=== PATIENT | male | born 1945 | race Caucasian/White ===

== ENCOUNTER 2016-07-06 19:21 | Inpatient (IN) | payer BC, OTHER ==
[2016-07-06 20:43] VITALS: BMI 29.1
[2016-07-06] MEDS ORDERED: Docusate-Senna 50 mg-8.6 mg Tab PO STA (21:50)
[2016-07-06] MEDS ORDERED: Docusate-Senna 50 mg-8.6 mg Tab PO SCH ×2 (22:00→23:20)
--- NOTE | 2016-07-06 23:00 | CP.PCM.HP ---
History of Present Illness - History of Present Illness History of Present Illness: Attending Dr Bangura PCP: Dr Chopra Chief Complaint: s/p Back surgery HPI: 71 years old male with hx of Hepatitis C; Liver Cirrhosis with thrombocytopenia, lumbar degenerative disc disease, transferred from [facility] [place] in [place], [facility] and [facility]. He was admitted to the [facility] on 07/02/16 for an elective posterior spinal fusion of T10 L2 S1 on the same day. The Surgeon was Dr Abilio Dewey. He apparently tolerated the surgery well and still have a Hemovac connected. Still with post surgical pains. PMH: Lumbar degenerative disc disease; HTN; Mild gastritis/ Duodenitis; Esophageal Varices s/p ligation; Hepatitis C treated 2015; Liver Cirrhosis; Hypothyroidism, Chronic mild edema to both lower extemities; SVT; PSH: Spinal surgery 2007; Spinal fusion T10 L2 L5 S1 SH: , live with spouse, light Cigarette use, no alcohol, no illegal drug use FH: No known faily hx Allergies: Celebrex causes hives Present on Admission - Present on Admission Any Indicators Present on Admission: No History of DVT/PE: No History of Uncontrolled Diabetes: No Urinary Catheter: No Decubitus Ulcer Present: No Review of Systems - Constitutional Constitutional: absent: Anorexia, Chills, Fatigue, Fever, Headache - EENT Eyes: Requires Corrective Lenses. absent: Diplopia, Floaters, Photophobia, Sees Flashes Ears: absent: Decreased Hearing, Ear Discharge, Ear Pain, Tinnitus Nose/Mouth/Throat: absent: Epistaxis, Nasal Congestion, Nasal Discharge, Sinus Pain, Sinus Pressure, Sore Throat - Cardiovascular Cardiovascular: Edema. absent: Chest Pain, Dyspnea, Orthopnea - Respiratory Respiratory: absent: Cough, Dyspnea, Wheezing - Gastrointestinal Gastrointestinal: Constipation. absent: Abdominal Pain, Diarrhea, Nausea, Vomiting - Genitourinary Genitourinary: absent: Dysuria, Flank Pain, Hematuria, Urinary Frequency - Musculoskeletal Musculoskeletal: Muscle Weakness Additional comments: Back pain, radiating down both lower extremities. Edema to both lower extremities. - Integumentary Integumentary: Pruritus, Rash - Neurological Neurological: absent: Confusion, Focal Weakness, Headaches, Memory Loss, Vertigo - Psychiatric Psychiatric: absent: Anxiety, Depression, Panic Attacks - Endocrine Endocrine: absent: Palpitations, Polydipsia, Polyphagia, Polyuria - Hematologic/Lymphatic Hematologic: absent: Easy Bleeding, Easy Bruising Past Patient History - Past Medical History & Family History Past Medical History?: Yes - Past Social History Smoking Status: Current Some Days Smoker Chewing Tobacco Use: No Cigar Use: No Alcohol: None Home Situation {Lives}: With Family - CARDIAC Hx Hypertension: Yes Other/Comment: SVT - PULMONARY Hx Respiratory Disorders: No - NEUROLOGICAL Hx Neurological Disorder: No - HEENT Hx HEENT Problems: No - RENAL Hx Chronic Kidney Disease: No - ENDOCRINE/METABOLIC Hx Hypothyroidism: Yes - HEMATOLOGICAL/ONCOLOGICAL Hx Blood Transfusions: Yes Hx Cirrhosis: Yes Hx Hepatitis C: Yes - INTEGUMENTARY Hx Dermatological Problems: No - MUSCULOSKELETAL/RHEUMATOLOGICAL Hx Falls: No Other/Comment: Degenerative Disc Disease - GASTROINTESTINAL Hx Esophageal Varices: Yes Hx Gastritis: Yes - GENITOURINARY/GYNECOLOGICAL Hx Genitourinary Disorders: No - PSYCHIATRIC Hx Psychophysiologic Disorder: No - SURGICAL HISTORY Other/Comment: Back Fusion - ANESTHESIA Hx Anesthesia: Yes Hx Anesthesia Reactions: No Meds Allergies/Adverse Reactions: Allergies Allergy/AdvReac Type Severity Reaction Status Date / Time celecoxib [From Celebrex] Allergy Unknown RASH Verified 07/06/16 20:43 Physical Exam - Constitutional Appears: No Acute Distress - Head Exam Head Exam: ATRAUMATIC, NORMAL INSPECTION, NORMOCEPHALIC - Eye Exam Eye Exam: EOMI, Normal appearance Pupil Exam: NORMAL ACCOMODATION, PERRL - ENT Exam ENT Exam: Mucous Membranes Moist, Normal Exam, Normal External Ear Exam, Normal Oropharynx - Neck Exam Neck exam: Positive for: Full Rom, Normal Inspection. Negative for: Lymphadenopathy, Tenderness - Respiratory Exam Respiratory Exam: Clear to Auscultation Bilateral. absent: Rales, Rhonchi, Wheezes - Cardiovascular Exam Cardiovascular Exam: REGULAR RHYTHM, RRR, +S1, +S2. absent: JVD - GI/Abdominal Exam GI & Abdominal Exam: Normal Bowel Sounds, Soft. absent: Mass, Organomegaly, Tenderness - Rectal Exam Rectal Exam: Deferred - Extremities Exam Additional comments: 2+ edema to the left lower extremity with 1+ edema to the right lower extremity. - Back Exam Additional comments: Post surgical back pain. Surgical dressing clean and dry,along the thoraco- lumbar spine with Hemo vac in place. - Neurological Exam Neurological exam: Alert, CN II-XII Intact, Oriented x3, Reflexes Normal - Psychiatric Exam Psychiatric exam: Normal Affect, Normal Mood - Skin Skin Exam: Dry, Intact, Pallor, Warm Results - Labs Labs: 07/04/16 Hb 7.7g/dlHt 22.5 Platelets 46 MCV 95 Sodium: 137 Potassium: 4.7 BUN: 33 Creatinine: 1.04 Assessment & Plan - Assessment and Plan (Free Text) Assessment: #. Lumbar degenerative Disc Disease s/p Spinal fusion T10 L2 S1 #. Liver Cirrhosis #. Thrombocytopenia #. Anemia #. Hypothyroidism #. HTN #. hepatitis C treated Plan: 71 years old male with hx of Hepatitis C; Liver Cirrhosis with thrombocytopenia , lumbar degenerative disc disease, transferred from [facility] [place] in [place], [facility] and [facility]. He was admitted to the [facility] on 07/02/16 for an elective posterior spinal fusion of T10 L2 S1 on the same day. The Surgeon was Dr Abilio Dewey. He apparently tolerated the surgery well and still have a Hemovac connected. Still with post surgical pains. #. Lumbar degenerative Disc Disease s/p Spinal fusion T10 L2 S1 -Pain management with Codine - Dressing on surgical site to be removed on POD#5 on 07/07/16, Then leave incision open to air as per medical records - PT/OT #. Liver Cirrhosis - Xifaxan 550mg po BID - Aldactone #. Thrombocytopenia secondary to liver cirrhosis - consult Hematology Derek Hayes - Follow platelets #. Anemia of chronic disease - Hematology on consult - follow Hb #. Edema to both lower extremities probably secondary to Hyplalbuminemia - Hold lasix #. Hypothyroidism - Levothyroxin 25mcg po daily #. HTN - Nadolol #. Hepatitis C treated #. DVT Prophylaxis with SCD #. code Status: full - Date & Time Date: 07/06/16 Time: 23:00
[2016-07-06] MEDS ORDERED: AL HYDROX PO PRN (23:08)
[2016-07-06] MEDS ORDERED: SIMETH PO PRN (23:08)
[2016-07-06] MEDS ORDERED: MAG HYDROX PO PRN (23:08)
[2016-07-06] MEDS ORDERED: Alum-Mag Hydrox-Simethicone Susp (30 mL) PO PRN ×2 (23:23→23:25)
[2016-07-07 00:42] VITALS: RESP 20
[2016-07-07] MEDS: Levothyroxine 25 MCG TAB PO SCH (06:35)
[2016-07-07 07:34] LABS: BASO % 0.2 % (0.0-2.0); EOS # 0.1 K/uL (0.0-0.7); EOS % 1.5 % (0.0-4.0); HEMATOCRIT 23.7 % (35.0-51.0); LYMPH # 0.5 K/uL (1.0-4.3); LYMPH % 10.2 % (20.0-40.0); MEAN CELL VOLUME 94.1 fl (80.0-94.0); MEAN CORPUSCULAR HEMOGLOBIN 32.8 pg (27.0-31.0); MEAN CORPUSCULAR HGB CONC 34.9 g/dL (33.0-37.0); MEAN PLATELET VOLUME 11.2 fl (7.2-11.7); MONO # 0.8 K/uL (0.0-0.8); MONO % 15.6 % (0.0-10.0); NEUT # 3.6 K/uL (1.8-7.0); NEUT % 72.5 % (50.0-75.0); NRBC % 0.1 % (0.0-0.0); RED CELL DISTRIBUTION WIDTH 15.4 % (11.5-14.5)
[2016-07-07 07:50] LABS: ALB/GLOB RATIO 0.8 (1.0-2.1); ALKALINE PHOSPHATASE 53 U/L (38-126); ALT/SGPT 34 U/L (21-72); AST/SGOT 42 U/L (17-59); BILIRUBIN,TOTAL 2.7 mg/dl (0.2-1.3); BLOOD UREA NITROGEN 20 mg/dl (9-20); CALCIUM 8.1 mg/dL (8.4-10.2); CARBON DIOXIDE 25 mmol/L (22-30); CHLORIDE 100 mmol/L (98-107); GFR AFRICAN-AMERICAN > 60; GLUCOSE,RANDOM 121 mg/dL (75-110); POTASSIUM 5.1 MMOL/L (3.6-5.0); SODIUM 131 mmol/l (132-148); TOTAL PROTEIN 5.2 G/DL (6.3-8.2)
[2016-07-07] MEDS ORDERED: Sod Polystyrene Sulf 15 gm/60 ml Oral Susp PO ONE (14:15)
--- NOTE | 2016-07-07 14:30 | HP ---
HISTORY OF PRESENT ILLNESS: This is a 71-year-old [place]an male with history of multiple medical pro blems, including liver cirrhosis secondary to hepatitis C, recently underwent spine surgery. The pat carli was admitted to transitional care unit after surgery for rehabilitation and deconditioning. The patient complains of back pain and constipation. No shortness of breath. REVIEW OF SYSTEMS: Other review of systems is negative. ALLERGIES: No known allergy. HOME MEDICATIONS: Nadolol 20 mg daily, Dilaudid 2 mg every 4 hours p.r.n., cabergoline 0.5 mg daily, Lasix 40 mg daily, lactulose 10 g q.i.d. p.r.n., levothyroxine 25 mcg daily, Xifaxan 550 mg daily, s pironolactone 25 mg daily. PAST MEDICAL HISTORY: 1. Hepatitis C, status post treatment with current undetected virus. 2. Liver cirrhosis. 3. Degenerative spine disease. 4. Hypothyroidism. SOCIAL HISTORY: No history of smoking, ETOH or substance abuse. FAMILY HISTORY: Noncontributory. PHYSICAL EXAMINATION: GENERAL: The patient is in bed, comfortable, not in any cardiopulmonary distress. VITAL SIGNS: Blood pressure 95/45, temperature 98.2, respiratory rate 20, and pulse 70. HEENT: Pupils equal, reactive to light. Normal-appearing mucosa of the conjunctivae, oropharyngeal and nasal membrane mucosa. NECK: Supple, no JVD, no carotid bruit, no lymph node, no thyromegaly. CHEST AND LUNGS: Bilateral symmetrical expansion, good air exchange, no rales, no rhonchi. CARDIOVASCULAR: PMI not localized. S1, S2. No additional sounds. ABDOMEN: Normoactive bowel sounds, no tenderness, no organomegaly, no masses. EXTREMITIES: No cyanosis, no clubbing, no edema. CENTRAL NERVOUS SYSTEM: Alert, awake, oriented x 3. No neurological deficits could be appreciated. ASSESSMENT: 1. Postoperative status post spine surgery for degenerative spine disease. 2. Liver cirrhosis secondary to hepatitis C. 3. Thrombocytopenia. 4. Hyperkalemia. PLAN: We will hold spironolactone and give the patient Kayexalate. Pain medications as needed and p hysical therapy. Sameh S Willem MD cc: [id number] TT: 07/07/2016 14:29:11 tn
--- NOTE | 2016-07-07 20:37 | CP.PCM.CON ---
History of Present Illness - History of Present Illness History of Present Illness: patient is a 71 year old male admitted to the transitional care unit for rehab. Patient with lumbar disc disease with low back pain radiating to the legs. Underwent surgery By Dr Dewey on 07/02 posterior spinal fusion T10 L2 L5 S1. Other History significant for Hep C, Supraventricular tachhcardia, eosopgageal varices, hypothroidism HTN Review of Systems - Constitutional Constitutional: Weakness - Musculoskeletal Musculoskeletal: Back Pain, Numbness, Tingling Past Patient History - Past Medical History & Family History Past Medical History?: Yes - Past Social History Smoking Status: Current Some Days Smoker Chewing Tobacco Use: No Cigar Use: No Alcohol: None Home Situation {Lives}: With Family - CARDIAC Hx Hypertension: Yes Other/Comment: SVT - PULMONARY Hx Respiratory Disorders: No - NEUROLOGICAL Hx Neurological Disorder: No - HEENT Hx HEENT Problems: No - RENAL Hx Chronic Kidney Disease: No - ENDOCRINE/METABOLIC Hx Hypothyroidism: Yes - HEMATOLOGICAL/ONCOLOGICAL Hx Blood Transfusions: Yes Hx Cirrhosis: Yes Hx Hepatitis C: Yes - INTEGUMENTARY Hx Dermatological Problems: No - MUSCULOSKELETAL/RHEUMATOLOGICAL Hx Falls: No Other/Comment: Degenerative Disc Disease - GASTROINTESTINAL Hx Esophageal Varices: Yes Hx Gastritis: Yes - GENITOURINARY/GYNECOLOGICAL Hx Genitourinary Disorders: No - PSYCHIATRIC Hx Psychophysiologic Disorder: No - SURGICAL HISTORY Other/Comment: Back Fusion - ANESTHESIA Hx Anesthesia: Yes Hx Anesthesia Reactions: No Meds Allergies/Adverse Reactions: Allergies Allergy/AdvReac Type Severity Reaction Status Date / Time celecoxib [From Celebrex] Allergy Unknown RASH Verified 07/06/16 20:43 - Medications Medications: Current Medications Al Hydrox/Mg Hydrox/Simethicone (Maalox Plus 30 Ml) 30 ml PO DAILY PRN PRN Reason: Heartburn Codeine Sulfate (Codeine) 30 mg PO Q6 PRN PRN Reason: Pain, moderate (4-7) Levothyroxine Sodium (Synthroid) 25 mcg PO DAILY@0630 [facility] Last Admin: 07/07/16 06:35 Dose: 25 mcg Nadolol (Corgard) 20 mg PO DAILY [facility] Last Admin: 07/07/16 09:57 Dose: Not Given Rifaximin (Xifaxan) 550 mg PO BID [facility] Last Admin: 07/07/16 17:03 Dose: 550 mg Senna/Docusate Sodium (Senokot S 50 Mg-8.6 Mg) 2 tab PO HS [facility] Spironolactone (Aldactone) 25 mg PO DAILY [facility] Last Admin: 07/07/16 09:16 Dose: 25 mg Physical Exam - Head Exam Head Exam: ATRAUMATIC, NORMAL INSPECTION, NORMOCEPHALIC - Eye Exam Eye Exam: EOMI, Normal appearance - ENT Exam ENT Exam: Mucous Membranes Moist, Normal Exam - Neck Exam Neck exam: Positive for: Normal Inspection - Respiratory Exam Respiratory Exam: NORMAL BREATHING PATTERN - Cardiovascular Exam Cardiovascular Exam: REGULAR RHYTHM - GI/Abdominal Exam GI & Abdominal Exam: Normal Bowel Sounds - Exam External exam: NORMAL EXTERNAL EXAM - Extremities Exam Additional comments: mild bilateral leg edema, right lower extremity slightly weaker than left - Neurological Exam Neurological exam: Alert, CN II-XII Intact, Reflexes Normal - Psychiatric Exam Psychiatric exam: Normal Affect, Normal Mood - Skin Skin Exam: Normal Color Results - Vital Signs Recent Vital Signs: Last Vital Signs Temp 98.2 F 07/07/16 17:05 Pulse 70 07/07/16 17:05 Resp 20 07/07/16 17:05 BP 88/55 L 07/07/16 17:05 Pulse Ox 99 07/07/16 17:05 - Labs Result Diagrams: 07/07/16 06:30 07/07/16 06:30 Labs: Laboratory Results - last 24 hr 07/07/16 06:30 WBC 5.0 RBC 2.52 L Hgb 8.3 L Hct 23.7 L MCV 94.1 H MCH 32.8 H MCHC 34.9 RDW 15.4 H Plt Count 44 L MPV 11.2 Neut % (Auto) 72.5 Lymph % (Auto) 10.2 L [place] % (Auto) 15.6 H Eos % (Auto) 1.5 Baso % (Auto) 0.2 Neut # 3.6 Lymph # 0.5 L [place] # 0.8 Eos # 0.1 Baso # 0.0 PT 13.9 H INR 1.34 H APTT 38.0 H Sodium 131 L Potassium 5.1 H Chloride 100 Carbon Dioxide 25 Anion Gap 11 BUN 20 Creatinine 0.9 Est GFR ( Amer) > 60 Est GFR (Non-Af Amer) > 60 Random Glucose 121 H Calcium 8.1 L Total Bilirubin 2.7 H AST 42 ALT 34 Alkaline Phosphatase 53 Ammonia 12 L Total Protein 5.2 L Albumin 2.3 L Globulin 2.9 Albumin/Globulin Ratio 0.8 L Assessment & Plan (1) Lumbar degenerative disc disease Assessment and Plan: status post posterior Spinal fusion T10 L2 L5 S1 by Dr Elaine admitted to [facility] Spinal precautions/fall precautions Plan for physical, occupational therapy for rom strengthening transfers and gait training. Patient was In dependent prior , so goals for Modified Josephine Other diagnosis Of Hepatits C, Htn eosophageal varices, hypothyroidism to be monitored by PMD and Labs. Status: Acute
[2016-07-07 20:39] LABS: IRON 39 ug/dL (49-181)
[2016-07-07 20:56] LABS: BASO % 0.3 % (0.0-2.0); EOS # 0.1 K/uL (0.0-0.7); EOS % 2.3 % (0.0-4.0); HEMATOCRIT 22.8 % (35.0-51.0); LYMPH # 0.5 K/uL (1.0-4.3); LYMPH % 10.3 % (20.0-40.0); MEAN CELL VOLUME 94.9 fl (80.0-94.0); MEAN CORPUSCULAR HEMOGLOBIN 32.9 pg (27.0-31.0); MEAN CORPUSCULAR HGB CONC 34.6 g/dL (33.0-37.0); MEAN PLATELET VOLUME 10.2 fl (7.2-11.7); MONO # 0.8 K/uL (0.0-0.8); MONO % 15.9 % (0.0-10.0); NEUT # 3.6 K/uL (1.8-7.0); NEUT % 71.2 % (50.0-75.0); RED CELL DISTRIBUTION WIDTH 15.4 % (11.5-14.5)
--- NOTE | 2016-07-07 22:30 | CP.PCM.CON ---
History of Present Illness - History of Present Illness History of Present Illness: 71 year old pleasant [place]an male with a history of hep C cirrhosis, recent completion of hep C treatment, degenerative disc disease s/p spinal fusion admitted to TCU for rehab. The patient is fatigued post surgery and notes to feeling weak. His reports he has been sleeping a lot since his surgery and is concerned he will not be strong enough to participate in rehab. He did require platelet transfusion before and after surgery. He denies abnormal bleeding and bruising. Past medical history: Hep C cirrhosis Past surgical history: Spinal fusion Family history: Denies hematologic and oncologic problems Social history: Denies tobacco, alcohol, and illicit drug use. Allergies: Celecoxib Review of systems: All remaining review of systems including HEENT, cardiovascular, respiratory, gastrointestinal, genitoruinary, musculoskeleletal , dermatologic, neurologic, and psychiatric are negative unless mentioned in the HPI. Past Patient History - Past Medical History & Family History Past Medical History?: Yes - Past Social History Smoking Status: Current Some Days Smoker Chewing Tobacco Use: No Cigar Use: No Alcohol: None Home Situation {Lives}: With Family - CARDIAC Hx Hypertension: Yes Other/Comment: SVT - PULMONARY Hx Respiratory Disorders: No - NEUROLOGICAL Hx Neurological Disorder: No - HEENT Hx HEENT Problems: No - RENAL Hx Chronic Kidney Disease: No - ENDOCRINE/METABOLIC Hx Hypothyroidism: Yes - HEMATOLOGICAL/ONCOLOGICAL Hx Blood Transfusions: Yes Hx Cirrhosis: Yes Hx Hepatitis C: Yes - INTEGUMENTARY Hx Dermatological Problems: No - MUSCULOSKELETAL/RHEUMATOLOGICAL Hx Falls: No Other/Comment: Degenerative Disc Disease - GASTROINTESTINAL Hx Esophageal Varices: Yes Hx Gastritis: Yes - GENITOURINARY/GYNECOLOGICAL Hx Genitourinary Disorders: No - PSYCHIATRIC Hx Psychophysiologic Disorder: No - SURGICAL HISTORY Other/Comment: Back Fusion - ANESTHESIA Hx Anesthesia: Yes Hx Anesthesia Reactions: No Meds Allergies/Adverse Reactions: Allergies Allergy/AdvReac Type Severity Reaction Status Date / Time celecoxib [From Celebrex] Allergy Unknown RASH Verified 07/06/16 20:43 - Medications Medications: Current Medications Codeine Sulfate (Codeine) 30 mg PO Q6 PRN PRN Reason: Pain, moderate (4-7) Levothyroxine Sodium (Synthroid) 25 mcg PO DAILY@0630 [facility] Last Admin: 07/07/16 06:35 Dose: 25 mcg Rifaximin (Xifaxan) 550 mg PO BID [facility] Last Admin: 07/07/16 17:03 Dose: 550 mg Tramadol HCl (Ultram) 50 mg PO Q4 PRN PRN Reason: Pain, moderate (4-7) Physical Exam - Head Exam Head Exam: ATRAUMATIC - Eye Exam Eye Exam: Normal appearance - ENT Exam ENT Exam: Mucous Membranes Dry - Respiratory Exam Respiratory Exam: NORMAL BREATHING PATTERN - Cardiovascular Exam Cardiovascular Exam: +S1, +S2 - GI/Abdominal Exam GI & Abdominal Exam: Normal Bowel Sounds - Extremities Exam Extremities exam: Positive for: normal inspection - Neurological Exam Neurological exam: Oriented x3 - Psychiatric Exam Psychiatric exam: Normal Affect, Normal Mood - Skin Skin Exam: Warm Results - Vital Signs Recent Vital Signs: Last Vital Signs Temp 98.8 F 07/07/16 20:52 Pulse 69 07/07/16 20:52 Resp 20 07/07/16 20:52 BP 92/57 L 07/07/16 20:52 Pulse Ox 100 07/07/16 20:52 - Labs Result Diagrams: 07/07/16 20:43 07/07/16 06:30 Labs: Laboratory Results - last 24 hr 07/07/16 07/07/16 07/07/16 06:30 20:21 20:43 WBC 5.0 5.0 RBC 2.52 L 2.40 L Hgb 8.3 L 7.9 L Hct 23.7 L 22.8 L MCV 94.1 H 94.9 H MCH 32.8 H 32.9 H MCHC 34.9 34.6 RDW 15.4 H 15.4 H Plt Count 44 L 34 L MPV 11.2 10.2 Neut % (Auto) 72.5 71.2 Lymph % (Auto) 10.2 L 10.3 L [place] % (Auto) 15.6 H 15.9 H Eos % (Auto) 1.5 2.3 Baso % (Auto) 0.2 0.3 Neut # 3.6 3.6 Lymph # 0.5 L 0.5 L [place] # 0.8 0.8 Eos # 0.1 0.1 Baso # 0.0 0.0 PT 13.9 H INR 1.34 H APTT 38.0 H Sodium 131 L Potassium 5.1 H Chloride 100 Carbon Dioxide 25 Anion Gap 11 BUN 20 Creatinine 0.9 Est GFR ( Amer) > 60 Est GFR (Non-Af Amer) > 60 Random Glucose 121 H Calcium 8.1 L Iron 39 L TIBC 222 L % Saturation 18 L Total Bilirubin 2.7 H AST 42 ALT 34 Alkaline Phosphatase 53 Ammonia 12 L Total Protein 5.2 L Albumin 2.3 L Globulin 2.9 Albumin/Globulin Ratio 0.8 L Blood Type O POSITIVE Antibody Screen Negative BBK History Checked No verified bt Assessment & Plan (1) Anemia Assessment and Plan: will check ferritin, retic count, b12, folate, FOBT to further characterize family concerned about anemia contributing to fatigue which may hinder participation in rehab recommend 2U PRBC transfusion Status: Acute (2) Thrombocytopenia Assessment and Plan: secondary to liver disease and splenic sequestration no platelet transfusion indication Status: Acute (3) Coagulopathy Assessment and Plan: liver disease Thank you for this interesting consult. Status: Acute
[2016-07-08] MEDS: Levothyroxine 25 MCG TAB PO SCH (05:59)
[2016-07-08 08:38] LABS: BASO % 0.4 % (0.0-2.0); EOS # 0.2 K/uL (0.0-0.7); EOS % 3.1 % (0.0-4.0); HEMATOCRIT 25.9 % (35.0-51.0); LYMPH # 0.8 K/uL (1.0-4.3); LYMPH % 13.4 % (20.0-40.0); MEAN CELL VOLUME 94.9 fl (80.0-94.0); MEAN CORPUSCULAR HEMOGLOBIN 32.7 pg (27.0-31.0); MEAN CORPUSCULAR HGB CONC 34.4 g/dL (33.0-37.0); MEAN PLATELET VOLUME 10.4 fl (7.2-11.7); MONO # 0.7 K/uL (0.0-0.8); MONO % 12.3 % (0.0-10.0); NEUT # 4.3 K/uL (1.8-7.0); NEUT % 70.8 % (50.0-75.0); NRBC % 0.1 % (0.0-0.0); RED CELL DISTRIBUTION WIDTH 15.4 % (11.5-14.5)
[2016-07-08 09:07] LABS: ALB/GLOB RATIO 0.8 (1.0-2.1); ALKALINE PHOSPHATASE 53 U/L (38-126); ALT/SGPT 34 U/L (21-72); AST/SGOT 43 U/L (17-59); BILIRUBIN,TOTAL 2.5 mg/dl (0.2-1.3); BLOOD UREA NITROGEN 15 mg/dl (9-20); CALCIUM 8.1 mg/dL (8.4-10.2); CARBON DIOXIDE 27 mmol/L (22-30); CHLORIDE 102 mmol/L (98-107); GFR AFRICAN-AMERICAN > 60; GLUCOSE,RANDOM 98 mg/dL (75-110); POTASSIUM 4.5 MMOL/L (3.6-5.0); SODIUM 135 mmol/l (132-148); TOTAL PROTEIN 5.6 G/DL (6.3-8.2)
[2016-07-08 18:29] LABS: FOLATE > 20.0 ng/mL
[2016-07-09] MEDS: Levothyroxine 25 MCG TAB PO SCH (06:11)
[2016-07-09 07:25] LABS: BASO % 0.4 % (0.0-2.0); EOS # 0.1 K/uL (0.0-0.7); EOS % 4.9 % (0.0-4.0); HEMATOCRIT 20.7 % (35.0-51.0); LYMPH # 0.5 K/uL (1.0-4.3); LYMPH % 17.5 % (20.0-40.0); MEAN CELL VOLUME 95.1 fl (80.0-94.0); MEAN CORPUSCULAR HEMOGLOBIN 32.6 pg (27.0-31.0); MEAN CORPUSCULAR HGB CONC 34.3 g/dL (33.0-37.0); MEAN PLATELET VOLUME 10.9 fl (7.2-11.7); MONO # 0.4 K/uL (0.0-0.8); MONO % 14.5 % (0.0-10.0); NEUT # 1.8 K/uL (1.8-7.0); NEUT % 62.7 % (50.0-75.0); RED CELL DISTRIBUTION WIDTH 15.3 % (11.5-14.5); WHITE BLOOD COUNT 2.9 K/uL (4.8-10.8)
[2016-07-09 07:26] LABS: ALB/GLOB RATIO 0.7 (1.0-2.1); ALKALINE PHOSPHATASE 52 U/L (38-126); ALT/SGPT 38 U/L (21-72); AST/SGOT 32 U/L (17-59); BILIRUBIN,TOTAL 1.6 mg/dl (0.2-1.3); BLOOD UREA NITROGEN 14 mg/dl (9-20); CALCIUM 7.5 mg/dL (8.4-10.2); CARBON DIOXIDE 25 mmol/L (22-30); CHLORIDE 103 mmol/L (98-107); GFR AFRICAN-AMERICAN > 60; GLUCOSE,RANDOM 97 mg/dL (75-110); POTASSIUM 4.5 MMOL/L (3.6-5.0); SODIUM 133 mmol/l (132-148); TOTAL PROTEIN 4.7 G/DL (6.3-8.2)
[2016-07-09] MEDS: Magnesium Oxide 400 mg Tab UD PO SCH (17:57)
--- NOTE | 2016-07-09 18:25 | PN ---
DATE: 07/09/2016 SUBJECTIVE: The patient is seen today, 07/09/2016. He is status post transfusion of 2 units of pack ed RBCs as hemoglobin dropped to 7.3. PHYSICAL EXAMINATION: VITAL SIGNS: Today, blood pressure 96/56, temperature 98.2, respiratory rate 20, and pulse is 71. HEENT: Pupils equal, reactive to light. Slightly pale mucosa of the conjunctivae. NECK: Supple, no JVD, no carotid bruit, no lymph node, no thyromegaly. CHEST AND LUNGS: Bilateral symmetrical expansion, good air exchange, no rales, no rhonchi. CARDIOVASCULAR: PMI not localized. S1, S2. No additional sounds. ABDOMEN: Normoactive bowel sounds, no tenderness, no organomegaly, no masses. EXTREMITIES: No cyanosis, no clubbing, no edema. CENTRAL NERVOUS SYSTEM: Alert, awake, oriented x 3. No neurological deficits could be appreciated. ASSESSMENT: 1. Status post lumbar spine surgery. 2. Liver cirrhosis with ascites and portal hypertension. 3. Severe anemia, multifactorial. 4. Thrombocytopenia. PLAN: We will resume patient's home medications, including diuretics and spironolactone and nonselec tive beta bronwyn. Follow up recommendations of gastroenterology as well as hematology. Tamia Bangura MD cc: [phone] TT: 07/09/2016 18:25:43 Confirmation # [id number] Dictation # [id number]
[2016-07-09] MEDS ORDERED: Simethicone 80 mg Chewtab PO STA (23:00)
[2016-07-10] MEDS: ceFAZolin 2 GM in Sodium Chloride 0.9% 100 ML IVPB SCH ×4 (00:43→21:31)
[2016-07-10] MEDS: Levothyroxine 25 MCG TAB PO SCH (06:30)
[2016-07-10] MEDS ORDERED: Ergocalciferol 50,000 Intl Units Cap PO SCH (09:00)
[2016-07-10] MEDS: Pantoprazole 40 mg EC Tab PO SCH (09:55)
[2016-07-10] MEDS: Magnesium Oxide 400 mg Tab UD PO SCH ×2 (09:55→17:26)
[2016-07-10] MEDS: LEVOCETRIZINE PO SCH (09:56)
[2016-07-10 12:47] LABS: BASO % 0.7 % (0.0-2.0); EOS # 0.1 K/uL (0.0-0.7); EOS % 4.2 % (0.0-4.0); HEMATOCRIT 25.6 % (35.0-51.0); LYMPH # 0.4 K/uL (1.0-4.3); LYMPH % 11.6 % (20.0-40.0); MEAN CORPUSCULAR HEMOGLOBIN 32.7 pg (27.0-31.0); MEAN CORPUSCULAR HGB CONC 35.1 g/dL (33.0-37.0); MEAN PLATELET VOLUME 11.2 fl (7.2-11.7); MONO # 0.5 K/uL (0.0-0.8); MONO % 16.6 % (0.0-10.0); NEUT # 2.1 K/uL (1.8-7.0); NEUT % 66.9 % (50.0-75.0); NRBC % 0.1 % (0.0-0.0); RED CELL DISTRIBUTION WIDTH 15.4 % (11.5-14.5); WHITE BLOOD COUNT 3.2 K/uL (4.8-10.8)
[2016-07-10 12:48] LABS: ALB/GLOB RATIO 0.7 (1.0-2.1); ALKALINE PHOSPHATASE 63 U/L (38-126); ALT/SGPT 33 U/L (21-72); AST/SGOT 36 U/L (17-59); BILIRUBIN,TOTAL 2.4 mg/dl (0.2-1.3); BLOOD UREA NITROGEN 14 mg/dl (9-20); CALCIUM 7.7 mg/dL (8.4-10.2); CARBON DIOXIDE 26 mmol/L (22-30); CHLORIDE 102 mmol/L (98-107); GFR AFRICAN-AMERICAN > 60; GLUCOSE,RANDOM 108 mg/dL (75-110); POTASSIUM 4.4 MMOL/L (3.6-5.0); SODIUM 134 mmol/l (132-148)
[2016-07-10 12:51] LABS: MEAN CELL VOLUME 93.1 fl (80.0-94.0)
--- NOTE | 2016-07-10 13:47 | CP.PCM.PN ---
Subjective - Date & Time of Evaluation Date of Evaluation: 07/10/16 Time of Evaluation: 10:00 - Subjective Subjective: patient with lower back discomfort Objective - Vital Signs/Intake and Output Vital Signs (last 24 hours): Temp Pulse Resp BP Pulse Ox 98.2 F 78 20 101/63 99 07/10/16 08:20 07/10/16 08:20 07/10/16 08:20 07/10/16 08:20 07/10/16 08:20 - Medications Medications: Current Medications Bumetanide (Bumex) 0.5 mg PO DAILY [facility] Last Admin: 07/10/16 09:55 Dose: 0.5 mg Codeine Sulfate (Codeine) 30 mg PO Q6 PRN PRN Reason: Pain, moderate (4-7) Ergocalciferol (Drisdol 50,000 Intl Units Cap) 1 cap PO QWK [facility] Furosemide (Lasix) 40 mg PO Q12 [facility] Last Admin: 07/10/16 09:09 Dose: 40 mg Home Med (Patient's Own Medication) 1 unit PO DAILY [facility] Last Admin: 07/10/16 09:56 Dose: 1 unit Cefazolin Sodium 2 gm/ Sodium (Chloride) 100 mls @ 100 mls/hr IVPB Q8 [facility] Last Admin: 07/10/16 10:10 Dose: 100 mls/hr Lactulose (Enulose) 20 gm PO BID [facility] Last Admin: 07/10/16 09:55 Dose: 20 gm Levothyroxine Sodium (Synthroid) 25 mcg PO DAILY@0630 [facility] Last Admin: 07/10/16 06:30 Dose: 25 mcg Magnesium Oxide (Mag-Ox) 400 mg PO BID [facility] Last Admin: 07/10/16 09:55 Dose: 400 mg Nadolol (Corgard) 40 mg PO DAILY [facility] Last Admin: 07/10/16 09:09 Dose: 40 mg Pantoprazole Sodium (Protonix Ec Tab) 40 mg PO DAILY [facility] Last Admin: 07/10/16 09:55 Dose: 40 mg Rifaximin (Xifaxan) 550 mg PO BID [facility] Last Admin: 07/10/16 09:54 Dose: 550 mg Spironolactone (Aldactone) 50 mg PO DAILY [facility] Last Admin: 07/10/16 09:56 Dose: 50 mg Tramadol HCl (Ultram) 50 mg PO Q4 PRN PRN Reason: Pain, moderate (4-7) Last Admin: 07/10/16 09:53 Dose: 50 mg - Labs Labs: 07/10/16 12:35 07/10/16 12:35 PT 13.9 SECONDS (9.6-11.2) H 07/07/16 06:30 INR 1.34 (0.92-1.08) H 07/07/16 06:30 APTT 38.0 SECONDS (23.3-32.5) H 07/07/16 06:30 - Head Exam Head Exam: ATRAUMATIC, NORMAL INSPECTION, NORMOCEPHALIC - Eye Exam Eye Exam: EOMI, Normal appearance, PERRL Pupil Exam: NORMAL ACCOMODATION - ENT Exam ENT Exam: Mucous Membranes Moist, Normal Exam - Cardiovascular Exam Cardiovascular Exam: REGULAR RHYTHM - GI/Abdominal Exam GI & Abdominal Exam: Soft, Normal Bowel Sounds - Rectal Exam Rectal Exam: NORMAL INSPECTION - Exam External exam: NORMAL EXTERNAL EXAM - Extremities Exam Extremities Exam: Normal Capillary Refill - Neurological Exam Neurological Exam: Alert, Awake Neuro motor strength exam: Left Upper Extremity: 4, Right Upper Extremity: 4, Left Lower Extremity: 3, Right Lower Extremity: 3 - Psychiatric Exam Psychiatric exam: Normal Affect, Normal Mood - Skin Skin Exam: Dry, Intact Assessment and Plan (1) Lumbar degenerative disc disease Assessment & Plan: status post laminectomy Plan for physicla, occupational and rec therapy Monitor dressing of the back, then Dc dressing and leave open to air as per transfers sheet Status: Acute (2) Anemia Status: Acute (3) Coagulopathy Status: Acute (4) Thrombocytopenia Status: Acute
--- NOTE | 2016-07-11 03:53 | CP.PCM.PN ---
Subjective - Date & Time of Evaluation Date of Evaluation: 07/10/16 Time of Evaluation: 11:15 - Subjective Subjective: No complaints, feeling better after PRBC transfusion Objective - Vital Signs/Intake and Output Vital Signs (last 24 hours): Temp Pulse Resp BP Pulse Ox 98.4 F 67 20 96/60 L 98 07/10/16 20:25 07/10/16 20:25 07/10/16 20:25 07/10/16 21:31 07/10/16 20:25 - Medications Medications: Current Medications Bumetanide (Bumex) 0.5 mg PO DAILY [facility] Last Admin: 07/10/16 09:55 Dose: 0.5 mg Codeine Sulfate (Codeine) 30 mg PO Q6 PRN PRN Reason: Pain, moderate (4-7) Ergocalciferol (Drisdol 50,000 Intl Units Cap) 1 cap PO QWK [facility] Furosemide (Lasix) 40 mg PO Q12 [facility] Last Admin: 07/10/16 21:31 Dose: Not Given Home Med (Patient's Own Medication) 1 unit PO DAILY [facility] Last Admin: 07/10/16 09:56 Dose: 1 unit Cefazolin Sodium 2 gm/ Sodium (Chloride) 100 mls @ 100 mls/hr IVPB 0500,1300, 2100 [facility] Last Admin: 07/10/16 21:31 Dose: 100 mls/hr Lactulose (Enulose) 20 gm PO BID [facility] Last Admin: 07/10/16 17:25 Dose: 20 gm Levothyroxine Sodium (Synthroid) 25 mcg PO DAILY@0630 [facility] Last Admin: 07/10/16 06:30 Dose: 25 mcg Magnesium Oxide (Mag-Ox) 400 mg PO BID [facility] Last Admin: 07/10/16 17:26 Dose: 400 mg Nadolol (Corgard) 40 mg PO DAILY [facility] Last Admin: 07/10/16 09:09 Dose: 40 mg Pantoprazole Sodium (Protonix Ec Tab) 40 mg PO DAILY [facility] Last Admin: 07/10/16 09:55 Dose: 40 mg Rifaximin (Xifaxan) 550 mg PO BID [facility] Last Admin: 07/10/16 17:26 Dose: 550 mg Spironolactone (Aldactone) 50 mg PO DAILY [facility] Last Admin: 07/10/16 09:56 Dose: 50 mg Tramadol HCl (Ultram) 50 mg PO Q4 PRN PRN Reason: Pain, moderate (4-7) Last Admin: 07/10/16 09:53 Dose: 50 mg - Labs Labs: 07/10/16 12:35 07/10/16 12:35 PT 13.9 SECONDS (9.6-11.2) H 07/07/16 06:30 INR 1.34 (0.92-1.08) H 07/07/16 06:30 APTT 38.0 SECONDS (23.3-32.5) H 07/07/16 06:30 - Head Exam Head Exam: ATRAUMATIC - Eye Exam Eye Exam: Normal appearance - ENT Exam ENT Exam: Mucous Membranes Dry - Respiratory Exam Respiratory Exam: NORMAL BREATHING PATTERN - Cardiovascular Exam Cardiovascular Exam: +S1, +S2 - GI/Abdominal Exam GI & Abdominal Exam: Normal Bowel Sounds - Extremities Exam Extremities Exam: Normal Inspection Assessment and Plan (1) Pancytopenia Assessment & Plan: liver cirrhosis splenic sequestration FOBT negative normal iron, b12, folate stores s/p 2U PRBC Status: Acute (2) Coagulopathy Assessment & Plan: liver disease Status: Acute
[2016-07-11] MEDS: ceFAZolin 2 GM in Sodium Chloride 0.9% 100 ML IVPB SCH ×3 (04:51→21:30)
[2016-07-11] MEDS: Levothyroxine 25 MCG TAB PO SCH (05:55)
[2016-07-11] MEDS: Pantoprazole 40 mg EC Tab PO SCH (10:21)
[2016-07-11] MEDS: Magnesium Oxide 400 mg Tab UD PO SCH ×2 (10:23→16:39)
[2016-07-11] MEDS: LEVOCETRIZINE PO SCH (10:24)
--- NOTE | 2016-07-11 14:46 | CP.PCM.PN ---
Subjective - Date & Time of Evaluation Date of Evaluation: 07/11/16 Time of Evaluation: 10:00 - Subjective Subjective: no acute complaints except some back pain , but less pain and no constipation at present Objective - Vital Signs/Intake and Output Vital Signs (last 24 hours): Temp Pulse Resp BP Pulse Ox 99.0 F 72 20 93/63 L 99 07/11/16 08:19 07/11/16 08:31 07/11/16 08:19 07/11/16 08:32 07/11/16 08:19 - Medications Medications: Current Medications Bumetanide (Bumex) 0.5 mg PO DAILY [facility] Last Admin: 07/11/16 10:22 Dose: 0.5 mg Codeine Sulfate (Codeine) 30 mg PO Q6 PRN PRN Reason: Pain, moderate (4-7) Ergocalciferol (Drisdol 50,000 Intl Units Cap) 1 cap PO QWK [facility] Furosemide (Lasix) 40 mg PO Q12 [facility] Last Admin: 07/11/16 08:32 Dose: Not Given Home Med (Patient's Own Medication) 1 unit PO DAILY [facility] Last Admin: 07/11/16 10:24 Dose: 1 unit Cefazolin Sodium 2 gm/ Sodium (Chloride) 100 mls @ 100 mls/hr IVPB 0500,1300, 2100 [facility] Last Admin: 07/11/16 13:15 Dose: 100 mls/hr Lactulose (Enulose) 20 gm PO BID [facility] Last Admin: 07/11/16 09:18 Dose: Not Given Levothyroxine Sodium (Synthroid) 25 mcg PO DAILY@0630 [facility] Last Admin: 07/11/16 05:55 Dose: 25 mcg Magnesium Oxide (Mag-Ox) 400 mg PO BID [facility] Last Admin: 07/11/16 10:23 Dose: 400 mg Nadolol (Corgard) 40 mg PO DAILY [facility] Last Admin: 07/11/16 08:31 Dose: 40 mg Pantoprazole Sodium (Protonix Ec Tab) 40 mg PO DAILY [facility] Last Admin: 07/11/16 10:21 Dose: 40 mg Rifaximin (Xifaxan) 550 mg PO BID [facility] Last Admin: 07/11/16 10:21 Dose: 550 mg Spironolactone (Aldactone) 50 mg PO DAILY [facility] Last Admin: 07/11/16 10:23 Dose: 50 mg Tramadol HCl (Ultram) 50 mg PO Q4 PRN PRN Reason: Pain, moderate (4-7) Last Admin: 07/11/16 09:18 Dose: 50 mg - Labs Labs: 07/10/16 12:35 07/10/16 12:35 PT 13.9 SECONDS (9.6-11.2) H 07/07/16 06:30 INR 1.34 (0.92-1.08) H 07/07/16 06:30 APTT 38.0 SECONDS (23.3-32.5) H 07/07/16 06:30 - Head Exam Head Exam: ATRAUMATIC, NORMAL INSPECTION, NORMOCEPHALIC - Eye Exam Eye Exam: EOMI, Normal appearance, PERRL Pupil Exam: NORMAL ACCOMODATION, PERRL - ENT Exam ENT Exam: Mucous Membranes Moist, Normal Exam - Respiratory Exam Respiratory Exam: NORMAL BREATHING PATTERN - Cardiovascular Exam Cardiovascular Exam: REGULAR RHYTHM - GI/Abdominal Exam GI & Abdominal Exam: Normal Bowel Sounds - Exam External exam: NORMAL EXTERNAL EXAM - Extremities Exam Extremities Exam: Normal Capillary Refill, Normal Inspection - Back Exam Back Exam: NORMAL INSPECTION - Neurological Exam Neurological Exam: Alert, Awake Neuro motor strength exam: Left Upper Extremity: 4, Right Upper Extremity: 4, Left Lower Extremity: 3, Right Lower Extremity: 3 - Psychiatric Exam Psychiatric exam: Normal Affect, Normal Mood - Skin Skin Exam: Dry, Intact, Normal Color Assessment and Plan (1) Lumbar degenerative disc disease Assessment & Plan: continue physical, occupational, rec therapy . Monitor back incisional area and haemoglobin Status: Acute (2) Anemia Status: Acute (3) Coagulopathy Status: Acute (4) Thrombocytopenia Status: Acute
[2016-07-11] MEDS ORDERED: Simethicone 80 mg Chewtab PO PRN (17:54)
--- NOTE | 2016-07-11 23:06 | PN ---
DATE: 07/11/2016 SUBJECTIVE: The patient is seen today, 07/11/2016. He is not in any cardiopulmonary distress. The patient feels gassy and he moved his bowel after lactulose and there is no rectal bleeding. PHYSICAL EXAMINATION: VITAL SIGNS: Blood pressure is 106/67, temperature 98.1, respiratory rate 20, and pulse is 73. HEENT: Pupils equal, reactive to light. Normal-appearing mucosa of the conjunctivae, oropharyngeal and nasal membrane mucosa. NECK: Supple, no JVD, no carotid bruit, no lymph node, no thyromegaly. CHEST AND LUNGS: Bilateral symmetrical expansion. No rhonchi. CARDIOVASCULAR: PMI not localized. S1, S2. No additional sounds. ABDOMEN: Normoactive bowel sounds, no tenderness, no organomegaly, no masses. EXTREMITIES: No cyanosis, no clubbing and no edema. CENTRAL NERVOUS SYSTEM: Alert, awake, oriented x 3. No neurological deficits could be appreciated. ASSESSMENT: Status post spine surgery, liver cirrhosis secondary to hepatitis C. PLAN: Continue current medications and we will add Mylanta as the patient feels gassy. We will samuel tor electrolytes. Tamia Bangura MD cc: [phone] TT: 07/11/2016 23:06:06 Confirmation # [id number] Dictation # [id number] mn
[2016-07-12] MEDS: ceFAZolin 2 GM in Sodium Chloride 0.9% 100 ML IVPB SCH ×3 (05:25→20:42)
[2016-07-12] MEDS: Levothyroxine 25 MCG TAB PO SCH (06:31)
[2016-07-12] MEDS: Magnesium Oxide 400 mg Tab UD PO SCH ×2 (08:54→17:31)
[2016-07-12] MEDS: LEVOCETRIZINE PO SCH (08:54)
[2016-07-12] MEDS: Pantoprazole 40 mg EC Tab PO SCH (08:55)
--- NOTE | 2016-07-12 18:41 | CP.PCM.PN ---
Subjective - Date & Time of Evaluation Date of Evaluation: 07/12/16 Time of Evaluation: 13:45 - Subjective Subjective: Feels well, participating in rehab denies bleeding Objective - Vital Signs/Intake and Output Vital Signs (last 24 hours): Temp Pulse Resp BP Pulse Ox 98.4 F 75 20 106/71 98 07/12/16 16:42 07/12/16 16:42 07/12/16 16:42 07/12/16 16:42 07/12/16 16:42 - Medications Medications: Current Medications Bumetanide (Bumex) 0.5 mg PO DAILY [facility] Last Admin: 07/12/16 08:51 Dose: 0.5 mg Codeine Sulfate (Codeine) 30 mg PO Q6 PRN PRN Reason: Pain, moderate (4-7) Ergocalciferol (Drisdol 50,000 Intl Units Cap) 1 cap PO QWK [facility] Furosemide (Lasix) 40 mg PO Q12 [facility] Last Admin: 07/12/16 08:53 Dose: 40 mg Home Med (Patient's Own Medication) 1 unit PO DAILY [facility] Last Admin: 07/12/16 08:54 Dose: 1 unit Cefazolin Sodium 2 gm/ Sodium (Chloride) 100 mls @ 100 mls/hr IVPB 0500,1300, 2100 [facility] Last Admin: 07/12/16 14:03 Dose: 100 mls/hr Lactulose (Enulose) 20 gm PO BID [facility] Last Admin: 07/12/16 17:30 Dose: Not Given Levothyroxine Sodium (Synthroid) 25 mcg PO DAILY@0630 [facility] Last Admin: 07/12/16 06:31 Dose: 25 mcg Magnesium Oxide (Mag-Ox) 400 mg PO BID [facility] Last Admin: 07/12/16 17:31 Dose: 400 mg Nadolol (Corgard) 40 mg PO DAILY [facility] Last Admin: 07/12/16 08:52 Dose: 40 mg Pantoprazole Sodium (Protonix Ec Tab) 40 mg PO DAILY [facility] Last Admin: 07/12/16 08:55 Dose: 40 mg Rifaximin (Xifaxan) 550 mg PO BID [facility] Last Admin: 07/12/16 17:31 Dose: 550 mg Simethicone (Mylicon Chew Tab) 80 mg PO TID PRN PRN Reason: Flatulence Last Admin: 07/11/16 22:54 Dose: 80 mg Spironolactone (Aldactone) 50 mg PO DAILY [facility] Last Admin: 07/12/16 08:48 Dose: 50 mg Tramadol HCl (Ultram) 50 mg PO Q4 PRN PRN Reason: Pain, moderate (4-7) Last Admin: 07/12/16 05:34 Dose: 50 mg - Labs Labs: 07/10/16 12:35 07/10/16 12:35 PT 13.9 SECONDS (9.6-11.2) H 07/07/16 06:30 INR 1.34 (0.92-1.08) H 07/07/16 06:30 APTT 38.0 SECONDS (23.3-32.5) H 07/07/16 06:30 - Head Exam Head Exam: ATRAUMATIC - Eye Exam Eye Exam: Normal appearance - ENT Exam ENT Exam: Mucous Membranes Dry - Respiratory Exam Respiratory Exam: NORMAL BREATHING PATTERN - Cardiovascular Exam Cardiovascular Exam: +S1, +S2 - GI/Abdominal Exam GI & Abdominal Exam: Normal Bowel Sounds - Extremities Exam Extremities Exam: Normal Inspection Assessment and Plan (1) Pancytopenia Assessment & Plan: liver disease thrombopoietin dysregulation, splenic sequestration adequate iron/b12/folate stores s/p PRBC transfusion Status: Acute (2) Coagulopathy Assessment & Plan: liver disease Status: Acute
[2016-07-13] MEDS ORDERED: Phenylephrine 0.25 % Supp PR STA (00:36)
[2016-07-13] MEDS: ceFAZolin 2 GM in Sodium Chloride 0.9% 100 ML IVPB SCH ×3 (05:46→20:55)
[2016-07-13] MEDS: Levothyroxine 25 MCG TAB PO SCH (06:31)
[2016-07-13 08:12] LABS: HEMATOCRIT 24.9 % (35.0-51.0); MEAN CELL VOLUME 93.8 fl (80.0-94.0); MEAN CORPUSCULAR HEMOGLOBIN 32.5 pg (27.0-31.0); MEAN CORPUSCULAR HGB CONC 34.6 g/dL (33.0-37.0); RED CELL DISTRIBUTION WIDTH 15.7 % (11.5-14.5); WHITE BLOOD COUNT 3.3 K/uL (4.8-10.8)
[2016-07-13] MEDS: Pantoprazole 40 mg EC Tab PO SCH (08:38)
[2016-07-13] MEDS ORDERED: CABERGOLINE 0.5 MG PO SCH (09:00)
[2016-07-13] MEDS: Magnesium Oxide 400 mg Tab UD PO SCH ×2 (10:56→18:26)
[2016-07-13] MEDS: LEVOCETRIZINE PO SCH (11:28)
--- NOTE | 2016-07-13 14:06 | CP.PCM.PN ---
Subjective - Date & Time of Evaluation Date of Evaluation: 07/13/16 Time of Evaluation: 11:00 - Subjective Subjective: patient with some discomfort in the back but claims he may have overworked in therapy, specially doing steps Objective - Vital Signs/Intake and Output Vital Signs (last 24 hours): Temp Pulse Resp BP Pulse Ox 98.2 F 59 L 20 90/60 L 99 07/13/16 08:59 07/13/16 08:59 07/13/16 08:59 07/13/16 09:53 07/13/16 08:59 - Medications Medications: Current Medications Bumetanide (Bumex) 0.5 mg PO DAILY [facility] Last Admin: 07/13/16 11:25 Dose: 0.5 mg Codeine Sulfate (Codeine) 30 mg PO Q6 PRN PRN Reason: Pain, moderate (4-7) Ergocalciferol (Drisdol 50,000 Intl Units Cap) 1 cap PO QWK [facility] Furosemide (Lasix) 40 mg PO Q12 [facility] Last Admin: 07/13/16 09:53 Dose: Not Given Home Med (Patient's Own Medication) 1 unit PO DAILY [facility] Last Admin: 07/13/16 11:28 Dose: Not Given Home Med (Patient's Own Medication) 0.5 unit PO TuFr [facility] Last Admin: 07/13/16 11:02 Dose: 0.5 unit Cefazolin Sodium 2 gm/ Sodium (Chloride) 100 mls @ 100 mls/hr IVPB 0500,1300, 2100 [facility] Last Admin: 07/13/16 05:46 Dose: 100 mls/hr Lactulose (Enulose) 20 gm PO BID [facility] Last Admin: 07/13/16 09:00 Dose: Not Given Levothyroxine Sodium (Synthroid) 25 mcg PO DAILY@0630 [facility] Last Admin: 07/13/16 06:31 Dose: 25 mcg Magnesium Oxide (Mag-Ox) 400 mg PO BID [facility] Last Admin: 07/13/16 10:56 Dose: 400 mg Nadolol (Corgard) 20 mg PO DAILY [facility] Pantoprazole Sodium (Protonix Ec Tab) 40 mg PO DAILY [facility] Last Admin: 07/13/16 08:38 Dose: 40 mg Rifaximin (Xifaxan) 550 mg PO BID [facility] Last Admin: 07/13/16 11:25 Dose: 550 mg Simethicone (Mylicon Chew Tab) 80 mg PO TID PRN PRN Reason: Flatulence Last Admin: 07/11/16 22:54 Dose: 80 mg Spironolactone (Aldactone) 50 mg PO DAILY [facility] Last Admin: 07/13/16 09:50 Dose: 50 mg Tramadol HCl (Ultram) 50 mg PO Q4 PRN PRN Reason: Pain, moderate (4-7) Last Admin: 07/13/16 09:49 Dose: 50 mg - Labs Labs: 07/13/16 07:43 07/10/16 12:35 PT 13.9 SECONDS (9.6-11.2) H 07/07/16 06:30 INR 1.34 (0.92-1.08) H 07/07/16 06:30 APTT 38.0 SECONDS (23.3-32.5) H 07/07/16 06:30 - Head Exam Head Exam: ATRAUMATIC, NORMAL INSPECTION, NORMOCEPHALIC - Eye Exam Eye Exam: EOMI, Normal appearance, PERRL Pupil Exam: NORMAL ACCOMODATION - ENT Exam ENT Exam: Mucous Membranes Moist, Normal Exam - Neck Exam Neck Exam: Normal Inspection - Respiratory Exam Respiratory Exam: NORMAL BREATHING PATTERN - Cardiovascular Exam Cardiovascular Exam: REGULAR RHYTHM - GI/Abdominal Exam GI & Abdominal Exam: Normal Bowel Sounds - Exam External exam: NORMAL EXTERNAL EXAM - Extremities Exam Extremities Exam: Normal Capillary Refill, Normal Inspection - Back Exam Back Exam: NORMAL INSPECTION - Neurological Exam Neurological Exam: Alert, Awake Neuro motor strength exam: Left Upper Extremity: 4, Right Upper Extremity: 4, Left Lower Extremity: 3, Right Lower Extremity: 3 Additional comments: mild leg odema but no calf tenderness - Psychiatric Exam Psychiatric exam: Normal Affect, Normal Mood Assessment and Plan (1) Lumbar degenerative disc disease Status: Acute (2) Anemia Status: Acute (3) Coagulopathy Status: Acute (4) Thrombocytopenia Status: Acute - Assessment and Plan (Free Text) Assessment: plan to continue with physical, occupational and rec therapy Monitor H/H/, monitor skin and pain treatment
[2016-07-13] MEDS ORDERED: Phenylephrine 0.25 % Supp PR ONE ×2 (22:43→23:45)
--- NOTE | 2016-07-13 23:52 | PN ---
DATE: 07/13/2016 SUBJECTIVE: The patient is seen today, . He is still in transitional care unit. PHYSICAL EXAMINATION: VITAL SIGNS: Blood pressure 90/60, temperature 98.4, respiratory rate 20, and pulse is 68. HEENT: Pupils equal, reactive to light. Normal-appearing mucosa of the conjunctivae. NECK: Supple, no JVD, no carotid bruit, no lymph node, no thyromegaly. CHEST AND LUNGS: Bilateral symmetrical expansion, good air exchange, no rales, no rhonchi. CARDIOVASCULAR: PMI not localized, S1 and S2. No additional sounds. ABDOMEN: Normoactive bowel sounds, no tenderness, no organomegaly, no masses. EXTREMITIES: No cyanosis, no clubbing, no edema. CENTRAL NERVOUS SYSTEM: Alert, awake, oriented x 2. No neurological deficits could be appreciated. ASSESSMENT: 1. Status post spine surgery. 2. Anemia, multifactorial. 3. Thrombocytopenia. 4. Hepatitis C, with liver cirrhosis. PLAN: Continue current medications including diuretics and nonselective beta blockers. We will repeat CBC again in the morning and, if the hemoglobin drops below 8.5, we will transfuse 2 units of packed RBCs. Tamia Bangura MD cc: 167 TT: 07/13/2016 23:51:54 Confirmation # [id number] Dictation # [id number] WELDON
[2016-07-14] MEDS: ceFAZolin 2 GM in Sodium Chloride 0.9% 100 ML IVPB SCH ×2 (05:49→12:14)
[2016-07-14] MEDS: Levothyroxine 25 MCG TAB PO SCH (06:52)
[2016-07-14 08:34] VITALS: PULSE 86; TEMP 98.2; O2SAT 20
[2016-07-14] MEDS: Pantoprazole 40 mg EC Tab PO SCH (08:38)
[2016-07-14 08:56] LABS: BASO % 0.9 % (0.0-2.0); EOS # 0.1 K/uL (0.0-0.7); EOS % 3.1 % (0.0-4.0); HEMATOCRIT 24.5 % (35.0-51.0); LYMPH # 0.6 K/uL (1.0-4.3); LYMPH % 19.6 % (20.0-40.0); MEAN CELL VOLUME 94.3 fl (80.0-94.0); MEAN CORPUSCULAR HEMOGLOBIN 32.2 pg (27.0-31.0); MEAN CORPUSCULAR HGB CONC 34.2 g/dL (33.0-37.0); MEAN PLATELET VOLUME 11.3 fl (7.2-11.7); MONO # 0.4 K/uL (0.0-0.8); MONO % 11.7 % (0.0-10.0); NEUT % 64.7 % (50.0-75.0); RED CELL DISTRIBUTION WIDTH 15.5 % (11.5-14.5); WHITE BLOOD COUNT 3.1 K/uL (4.8-10.8)
[2016-07-14 09:39] LABS: ALB/GLOB RATIO 0.7 (1.0-2.1); ALKALINE PHOSPHATASE 92 U/L (38-126); ALT/SGPT 26 U/L (21-72); AST/SGOT 37 U/L (17-59); BILIRUBIN,TOTAL 1.2 mg/dl (0.2-1.3); BLOOD UREA NITROGEN 14 mg/dl (9-20); CALCIUM 7.5 mg/dL (8.4-10.2); CARBON DIOXIDE 25 mmol/L (22-30); CHLORIDE 106 mmol/L (98-107); GFR AFRICAN-AMERICAN > 60; GLUCOSE,RANDOM 89 mg/dL (75-110); SODIUM 133 mmol/l (132-148); TOTAL PROTEIN 5.1 G/DL (6.3-8.2)
[2016-07-14] MEDS: Magnesium Oxide 400 mg Tab UD PO SCH (10:04)
[2016-07-14 10:05] VITALS: BP 99/60
[2016-07-14] MEDS: LEVOCETRIZINE PO SCH (10:37)
--- NOTE | 2016-07-18 15:17 | RAD ---
PROCEDURE: Lumbar spine HISTORY: post T10-S1 fusion COMPARISON: None TECHNIQUE: AP and lateral views only. FINDINGS: Incompletely visualized orthopedic hardware thoracolumbar spine and sacrum. Interpedicular elements traverse L1, L4 and L3. Disc arthroplasty at the lumbosacral junction. No evidence of hardware failure. IMPRESSION: Satisfactory position alignment of orthopedic hardware thoracolumbar spine and sacrum. No acute findings identified.
--- NOTE | 2016-07-22 23:33 | DS ---
REASON FOR ADMISSION: This is a 71-year-old [place] male with history of multiple medical problems, who was admitted to transitional care unit at [facility] after spine surgery. COURSE OF HOSPITALIZATION: The patient was continued on his home medications for liver cirrhosis and edema. The patient was started on physical therapy and occupational therapy. The patient was coope rative to therapy and he continued to improve. The patient has hepatitis C with liver cirrhosis and portal hypertension with edema. The patient was continued on his diuretics and beta bronwyn that he was taking prior to this admission. The patient was discharged home in a stable condition. The greg ent was transfused 2 units of packed RBCs during this admission due to a drop of hemoglobin. The pat carli was discharged to home with his son to follow up with his primary care physician and gastroenter ologist. FINAL DIAGNOSES: 1. Subacute rehabilitation. 2. Degenerative spine disease, status post spine instrumentation. 3. Hypertension. 4. Anemia, multifactorial. Tamia Bangura MD cc: 167 TT: 07/22/2016 23:32:16 ln
== END 2016-07-14 15:00 | disposition home or self-care (01) | DRG 552 ==
LOC: H.TCU 20:44
PROVIDERS: ADMIT Internal Medicine; ATTEND Internal Medicine
PROC: F07Z9FZ Gait Training/Functional Ambulation Treatment using Assistive, Adaptive, Supportive or Protective Equipment (ICD-10-PCS; 2016-07-06)
PROC: F07L6ZZ Therapeutic Exercise Treatment of Musculoskeletal System - Lower Back / Lower Extremity (ICD-10-PCS; 2016-07-06)
PROC: F08Z4FZ Home Management Treatment using Assistive, Adaptive, Supportive or Protective Equipment (ICD-10-PCS; 2016-07-06)
PROC: 30233N1 Transfusion of Nonautologous Red Blood Cells into Peripheral Vein, Percutaneous Approach (ICD-10-PCS; principal; 2016-07-09)
DX: M51.36 Other intervertebral disc degeneration, lumbar region (principal); R18.8 Other ascites; D68.9 Coagulation defect, unspecified; K76.6 Portal hypertension; E87.5 Hyperkalemia; K74.60 Unspecified cirrhosis of liver; I10 Essential (primary) hypertension; E03.9 Hypothyroidism, unspecified; Z86.19 Personal history of other infectious and parasitic diseases; D63.8 Anemia in other chronic diseases classified elsewhere; Z98.1 Arthrodesis status; Z72.0 Tobacco use; K59.00 Constipation, unspecified

== ENCOUNTER 2016-12-22 23:43 | Emergency (ER) | payer MEDICARE, BC ==
[2016-12-22 23:59] VITALS: BMI 26.6
[2016-12-23] MEDS ORDERED: Sodium Chloride 0.9% 1,000 ML IV STA ×3 (00:01→02:08)
[2016-12-23 00:17] LABS: BASO % 0.3 % (0.0-2.0); EOS # 0.1 K/uL (0.0-0.7); EOS % 2.2 % (0.0-4.0); HEMATOCRIT 33.7 % (35.0-51.0); LYMPH # 0.3 K/uL (1.0-4.3); MEAN CELL VOLUME 93.9 fl (80.0-94.0); MEAN CORPUSCULAR HEMOGLOBIN 31.5 pg (27.0-31.0); MEAN CORPUSCULAR HGB CONC 33.5 g/dL (33.0-37.0); MEAN PLATELET VOLUME 11.2 fl (7.2-11.7); MONO # 0.4 K/uL (0.0-0.8); MONO % 13.1 % (0.0-10.0); NEUT # 2.3 K/uL (1.8-7.0); NEUT % 74.4 % (50.0-75.0); NRBC % 0.2 % (0.0-0.0); RED CELL DISTRIBUTION WIDTH 16.2 % (11.5-14.5); WHITE BLOOD COUNT 3.1 K/uL (4.8-10.8)
--- NOTE | 2016-12-23 00:24 | ED PDOC ---
HPI:Nausea, Vomiting, Diarrhea Time Seen by Provider: 12/22/16 23:43 Chief Complaint (Nursing): GI Problem Chief Complaint (Provider): GI Problem History Per: Patient, Family () History/Exam Limitations: no limitations Onset/Duration Of Symptoms: Days (x3) Current Symptoms Are (Timing): Still Present Additional Complaint(s): Tahir Joseph is a 71 year old male with previous medical history of hepetitis C, cirrhosis and liver cancer, who presents to the emergency department, accompanied by his , with a complaint of 2 episodes of progressively worsening vomiting (food colored) associated with constipation, nausea, generalized weakness and slight epigastric pain ongoing for 3 days. Denied any further medical complaints. Of note, patient is currently on Lasix 120mg. PMD: Tamia Bangura MD Past Medical History Reviewed: Historical Data, Nursing Documentation, Vital Signs Vital Signs: Last Vital Signs Temp 98.3 F 12/23/16 00:01 Pulse 51 L 12/23/16 00:01 Resp 16 12/23/16 00:01 BP 102/63 12/23/16 00:01 Pulse Ox 100 12/23/16 00:01 - Medical History PMH: Gastritis, Hepatitis (C), HTN, Hypothyroidism Denies: Chronic Kidney Disease Other PMH: cirrhosis; liver CA - Family History Family History: States: Unknown Family Hx - Home Medications Home Medications: Ambulatory Orders Medication Instructions Recorded Furosemide [Lasix] 40 mg PO DAILY 07/06/16 Levothyroxine [Synthroid] 25 mcg PO DAILY 07/06/16 Nadolol [Corgard] 20 mg PO DAILY 07/06/16 Spironolactone [Aldactone] 25 mg PO DAILY 07/06/16 rifAXIMin [Xifaxan] 550 mg PO DAILY 07/06/16 Bumetanide [Bumex] 0.5 mg PO DAILY tab 07/14/16 Cabergoline 0.5 mg PO TUFR #0 07/14/16 Codeine 30 mg PO Q6 PRN tab 07/14/16 Ergocalciferol [Drisdol 50,000 1 cap PO QWK cap 07/14/16 Intl Units Cap] Lactulose [Enulose] 20 gm PO BID 07/14/16 Magnesium Oxide [Mag-Ox] 400 mg PO BID tab 07/14/16 Nadolol [Corgard] 20 mg PO DAILY tab 07/14/16 Pantoprazole [Protonix EC Tab] 40 mg PO DAILY ect 07/14/16 Simethicone [Mylicon Chew Tab] 80 mg PO TID PRN 07/14/16 Spironolactone [Aldactone] 50 mg PO DAILY tab 07/14/16 traMADol [Ultram] 50 mg PO Q4 PRN tab 07/14/16 - Allergies Allergies/Adverse Reactions: Allergies Allergy/AdvReac Type Severity Reaction Status Date / Time celecoxib [From Celebrex] Allergy Unknown RASH Verified 12/22/16 23:59 Review of Systems ROS Statement: Except As Marked, All Systems Reviewed And Found Negative Constitutional: Positive for: Weakness Gastrointestinal: Positive for: Nausea, Vomiting (x2), Abdominal Pain (slight epigastric), Constipation (hard stools) Physical Exam - Reviewed Nursing Documentation Reviewed: Yes Vital Signs Reviewed: Yes - Physical Exam Appears: Positive for: Non-toxic, No Acute Distress Head Exam: Positive for: ATRAUMATIC, NORMAL INSPECTION, NORMOCEPHALIC Skin: Positive for: Jaundice. Negative for: Normal Color Eye Exam: Positive for: Scleral icterus. Negative for: Normal appearance, Nystagmus ENT: Positive for: Normal ENT Inspection Neck: Positive for: Normal, Painless ROM, Supple. Negative for: Decreased ROM Cardiovascular/Chest: Positive for: Regular Rate, Rhythm. Negative for: Chest Non Tender Respiratory: Positive for: Normal Breath Sounds, Accessory Muscle Use. Negative for: Decreased Breath Sounds, Respiratory Distress Gastrointestinal/Abdominal: Positive for: Normal Exam, Soft. Negative for: Tenderness, Mass Back: Positive for: Normal Inspection. Negative for: L CVA Tenderness, R CVA Tenderness Extremity: Positive for: Normal ROM. Negative for: Tenderness Neurologic/Psych: Positive for: Alert, Oriented - Laboratory Results Result Diagrams: 12/23/16 00:06 12/23/16 01:28 - ECG O2 Sat by Pulse Oximetry: 100 (RA) Pulse Ox Interpretation: Normal Medical Decision Making Medical Decision Making: Initial Impression: Dehydration R/O gastritis Initial Plan: * Type and screen * CMP * Lipase * CBC * CXR * NS 1,000ml IV 500mls/hr * Protonix INJ 40mg IVP * Zofran INJ 4mg IVP * Urinalysis 4AM: Pt. is feeling much better, tolerating PO. Had a large BM after lactulose and fleet enema. Will discharge home. Advised to followup with primary care doctor on Saturday. Return precautions given. Scribe Attestation: Documented by Zandra Flores, acting as a scribe for Ulysses Snyder MD. Provider Scribe Attestation: All medical record entries made by the Scribe were at my direction and personally dictated by me. I have reviewed the chart and agree that the record accurately reflects my personal performance of the history, physical exam, medical decision making, and the department course for this patient. I have also personally directed, reviewed, and agree with the discharge instructions and disposition. Disposition - Clinical Impression Clinical Impression: Abdominal pain, Constipation - Disposition Referrals: Tamia Bangura MD [Staff Provider] - Disposition: Routine/Home Disposition Time: 04:10 Condition: STABLE Instructions: Constipation (DC), Gastritis (DC) Forms: [employer] (Ukrainian)
[2016-12-23 00:38] LABS: ALB/GLOB RATIO 0.8 (1.0-2.1); ALKALINE PHOSPHATASE 145 U/L (38-126); ALT/SGPT 36 U/L (21-72); AST/SGOT 85 U/L (17-59); BILIRUBIN,TOTAL 4.5 mg/dl (0.2-1.3); BLOOD UREA NITROGEN 20 mg/dl (9-20); CALCIUM 8.8 mg/dL (8.4-10.2); CARBON DIOXIDE 24 mmol/L (22-30); CHLORIDE 105 mmol/L (98-107); GFR AFRICAN-AMERICAN > 60; GLUCOSE,RANDOM 100 mg/dL (75-110); LIPASE 253 U/L (23-300); SODIUM 134 mmol/l (132-148)
[2016-12-23 00:40] LABS: POTASSIUM 5.3 MMOL/L (3.6-5.0)
[2016-12-23 01:37] LABS: RBC URINE 2 /hpf (0-3); URINE BACTERIA RARE (<OCC); URINE BILIRUBIN NEGATIVE (NEGATIVE); URINE BLOOD NEGATIVE (NEGATIVE); URINE COLOR YELLOW (YELLOW); URINE GLUCOSE (UA) NEG (Normal); URINE KETONE NEGATIVE (NEGATIVE); URINE LEUKOCYTE ESTERASE NEG Leu/uL (Negative); URINE PROTEIN NEGATIVE (NEGATIVE); URINE UROBILINOGEN 0.2-1.0 mg/dL (0.2-1.0); WBC URINE 1 /hpf (0-5)
[2016-12-23 03:49] VITALS: PULSE 61; TEMP 97.8
[2016-12-23 04:49] VITALS: BP 100/60; RESP 16; O2SAT 98
--- NOTE | 2016-12-23 09:35 | RAD ---
HISTORY: weakness COMPARISON: None available. TECHNIQUE: Chest, one view. FINDINGS: LUNGS: Scarring/atelectasis within bilateral lung apices. 8 mm nodular density at the left lung base. Please note that chest x-ray has limited sensitivity for the detection of pulmonary masses. PLEURA: Blunting of bilateral costophrenic angles compatible with small pleural effusions. No definite pneumothorax . CARDIOVASCULAR: Heart size appears within normal limits. OSSEOUS STRUCTURES: No acute osseous abnormality identified. VISUALIZED UPPER ABDOMEN: Unremarkable. OTHER FINDINGS: None. IMPRESSION: Scarring/atelectasis within bilateral lung apices. Small bilateral pleural effusions. 8 mm nodular density at the left lung base. Suggest CT of the chest for further evaluation. Study has been marked for PA review.
--- NOTE | 2016-12-23 10:34 | RAD ---
HISTORY: r/o pna COMPARISON: No prior chest x-ray available for comparison. TECHNIQUE: Chest, one view. FINDINGS: LUNGS: No focal consolidation. Please note that chest x-ray has limited sensitivity for the detection of pulmonary masses. PLEURA: No significant pleural effusion identified. No definite pneumothorax . CARDIOVASCULAR: Heart size appears borderline enlarged. Ectatic aorta. OSSEOUS STRUCTURES: Partially imaged thoracolumbar spinal hardware. VISUALIZED UPPER ABDOMEN: Unremarkable. OTHER FINDINGS: None. IMPRESSION: No focal consolidation, significant pleural effusion, or definite pneumothorax identified. Borderline cardiomegaly. Ectatic aorta.
--- NOTE | 2016-12-23 19:39 | CARD ---
APPROVED REPORT EKG Measurement Heart [id number] <Conclusion> Sinus bradycardia Otherwise normal ECG
== END 2016-12-23 04:49 | disposition home or self-care (01) ==
LOC: H.ER 23:43
DX: K29.70 Gastritis, unspecified, without bleeding (principal); K59.00 Constipation, unspecified; B18.2 Chronic viral hepatitis C; K74.60 Unspecified cirrhosis of liver; C22.9 Malignant neoplasm of liver, not specified as primary or secondary
CPT/HCPCS: 71010; 80053; 81003; 82140; 83690; 84132; 85025; 86850; 86900; 93005; 96361; 96374; 96375; 99283; C9113; J2405; J7040